=== PATIENT | female | born 1945 | race Caucasian/White ===

== ENCOUNTER → 2017-10-04 | Outpatient (CLI) | payer OTHER ==
[~2017-10-04] MED LIST: ADVIL COLD &1 TABLET PO; ALKA-SELTZER P1 EAC6 PO; AMLODIPINE BESYL5 MG PO; ASPIR 8181 M1 PO; ATIVAN0.5 MG PO; ATORVASTATIN CA20 MG PO; HYDROCODON-ACE1 EAC7 PO; HYOSCYAMINE0.375 MG PO; LIPITOR10 MG PO; NICOTINE PATCH1 EAC1 TD; NORVASC5 MG PO; TUMS ULTRA ST1177 MG PO; VITAMIN D2000 UNIT PO; XALATAN2.5 ML BOTH EYES
== END | disposition home or self-care (01) ==
LOC: OPR 07:21 → EDSTATUS 08:00 → OPR 08:00
DX: C78.7 Secondary malignant neoplasm of liver and intrahepatic bile duct (principal); I10 Essential (primary) hypertension; Z85.030 Personal history of malignant carcinoid tumor of large intestine; E78.5 Hyperlipidemia, unspecified; Z88.2 Allergy status to sulfonamides; Z79.82 Long term (current) use of aspirin
CPT/HCPCS: 77012; 88305; 88341 TC; 88342 TC; J1885; J2405; J3010

== ENCOUNTER 2017-10-18 06:49 | Day surgery (SDC) | payer OTHER ==
[~2017-10-18 06:49] MED LIST changes: +TRAMADOL HCL50 MG PO
== END 2017-10-18 09:30 | disposition home or self-care (01) ==
LOC: CATH 06:49
DX: Z45.2 Encounter for adjustment and management of vascular access device (principal); I87.8 Other specified disorders of veins; C34.90 Malignant neoplasm of unspecified part of unspecified bronchus or lung; I10 Essential (primary) hypertension; E78.00 Pure hypercholesterolemia, unspecified; Z87.891 Personal history of nicotine dependence
CPT/HCPCS: C1751; C1894; J0690; J1644; J2250; J3010; S0020